=== PATIENT | male | born 1995 | race Caucasian/White ===

== ENCOUNTER 2016-08-02 14:53 | Emergency (ER) | payer MEDICAID, OTHER ==
[~2016-08-02] VITALS: Ht 180.3 cm; Wt 87.0 kg
[2016-08-02 15:02] VITALS: BP 128/76; PULSE 91; RESP 16; TEMP 97.9; O2SAT 97
[2016-08-02] MEDS ORDERED: LIDOCAINE HCL 1% 50 ML VIAL XX ONE (15:15)
[2016-08-02] MEDS ORDERED: ONDANSETRON ODT 4 MG TAB PO/SL ONE (15:15)
[2016-08-02] MEDS ORDERED: AZITHROMYCIN 250 MG TAB PO ONE (15:15)
[2016-08-02] MEDS ORDERED: metroNIDAZOLE 500 MG TAB PO ONE (15:15)
[2016-08-02] MEDS ORDERED: cefTRIAXone 250 MG VIAL IM ONE (15:15)
[2016-08-02 15:29] LABS: BLOOD, URINE NEG (NEG); GLUCOSE,URINE NEG (NEG); KETONE, URINE NEG (NEG); NITRITE,URINE NEG (NEG)
[2016-08-02 15:39] LABS: METHOD OF COLLECTION CLEAN CATCH; URINE COLOR YELLOW (YELLW/STRAW)
[2016-08-02 15:40] LABS: CULTURE IF INDICATED CULTURE INDICATED
[2016-08-02 15:41] LABS: COMMENT (UR) CULTURE INDICATED; COMMENT2 (UR) MUCOUS PRESENT; SQUAMOUS EPITHELIAL CELL URINE 0-5 /hpf (0-5)
--- NOTE | 2016-08-02 15:48 | PD ---
HPI Chief Complaint: Complaint Time Seen by Provider: 15:15 Travel History International Travel<30 days: No Contact w/Intl Traveler<30days: No Traveled to known affect area: No History of Present Illness HPI Patient's a 20-year-old male who comes into the emergency department for evaluation for exposure to chlamydia. Patient states his girlfriend was diagnosed with Chlamydia one week ago during a routine exam. Patient denies any discharge but reports occasional burning with urination. He further denies any fevers, chills, abdominal pain or nausea, vomiting, back pain. PFSH Past Medical History Medical History: Denies Significant Hx Tetanus Vaccination: > 5 Years Influenza Vaccination: No Social History Alcohol Use: No Tobacco Use: Yes (1 PPD) Substance Use: No Allergies-Medications (Allergen,Severity, Reaction): Coded Allergies: No Known Allergies (Unverified , 08/02/16) Reported Meds & Prescriptions Reported Meds & Active Scripts Active No Active Prescriptions or Reported Medications Review of Systems Except as stated in HPI: all other systems reviewed are Neg Genitourinary: Positive: Dysuria Physical Exam Narrative GENERAL: Well-nourished, well-developed patient. SKIN: Warm and dry. HEAD: Normocephalic. EYES: No scleral icterus. No injection or drainage. NECK: Supple, trachea midline. No JVD or lymphadenopathy. CARDIOVASCULAR: Regular rate and rhythm without murmurs, gallops, or rubs. RESPIRATORY: Breath sounds equal bilaterally. No accessory muscle use. GASTROINTESTINAL: Abdomen soft, non-tender, nondistended. MUSCULOSKELETAL: No cyanosis, or edema. BACK: Nontender without obvious deformity. No CVA tenderness. Data Data Last Documented VS Vital Signs Date Time Temp Pulse Resp B/P Pulse Ox O2 Delivery O2 Flow Rate FiO2 08/02/16 15:02 97.9 91 16 128/76 97 Orders Urinalysis - C+S If Indicated (08/02/16 15:13) Gc And Chlamydia Pcr (08/02/16 15:13) Azithromycin (Zithromax) (08/02/16 15:15) Ceftriaxone Inj (Rocephin Inj) (08/02/16 15:15) Metronidazole (Flagyl) (08/02/16 15:15) Ondansetron Odt (Zofran Odt) (1/20/17 15:15) Lidocaine 1% Inj (50 Ml) (Xylocaine 1% I (08/02/16 15:15) Urine Culture (08/02/16 15:15) Labs Laboratory Tests Test 08/02/16 15:15 Urine Collection Type CLEAN CATCH Urine Color YELLOW Urine Turbidity CLEAR Urine pH 6.0 Urine Specific [place] 1.021 Urine Protein NEG mg/dL Urine Glucose (UA) NEG mg/dL Urine Ketones NEG mg/dL Urine Occult Blood NEG Urine Nitrite NEG Urine Bilirubin NEG Urine Leukocyte Esterase TRACE Urine WBC 9-14 /hpf Urine Squamous Epithelial 0-5 /hpf Cells Urine Amorphous Sediment FEW Microscopic Urinalysis Comment CULTURE INDICATED Urine Collection Time 1515 MDM Medical Decision Making Medical Screen Exam Complete: Yes Emergency Medical Condition: Yes Interpretation(s) Vital Signs Date Time Temp Pulse Resp B/P Pulse Ox O2 Delivery O2 Flow Rate FiO2 08/02/16 15:02 97.9 91 16 128/76 97 Differential Diagnosis Urinary tract infection versus dissection transmitted infection versus dysuria versus other Narrative Course Patient is a 20-year-old male who presented to emergency for evaluation after he was notified that his girlfriend has chlamydia. Patient is in a monogamous relationship, she received this diagnosis during routine screening. Urinalysis revealed elevated white blood cells, culture is pending. Patient was treated empirically for trichomoniasis, chlamydia, gonorrhea. Patient was advised that he will be notified if his test results are positive. Patient was advised to avoid sexual relations with his girlfriend until she completes the full course of treatment. Patient verbalized understanding of these instructions. He was further advised to avoid alcohol intake for at least 72 hours. Patient is stable for discharge. Diagnosis Primary Impression: Exposure to sexually transmitted disease (STD) Referrals: Primary Care Physician [facility] Dept. Patient Instructions: General Instructions, Sexually Transmitted Diseases (ED) Additional Instructions: Follow-up with your primary doctor or at the [facility] Department for further screening for sexual transmitted diseases. Do not take alcohol for at least 72 hours Return to emergency department for any new or worsening symptoms Med/Other Pt SpecificInfo: No Change to Meds Scripts No Active Prescriptions or Reported Meds Disposition: 01 DISCHARGE HOME Condition: Stable Desiree Mendiola Aug 02, 2016 15:48
[2016-08-02 19:13] LABS: CHLAMYDIA PCR DETECTED (NOT DETECT); NEISSERIA PCR NOT DETECTED (NOT DETECT)
== END 2016-08-02 16:15 | disposition home or self-care (01) ==
LOC: PHEFT 14:53
DX: R30.0 Dysuria (principal); Z20.2 Contact with and (suspected) exposure to infections with a predominantly sexual mode of transmission; F17.210 Nicotine dependence, cigarettes, uncomplicated
CPT/HCPCS: 81001; 87086; 87491; 87591; 96372; 99283; J0696

== ENCOUNTER 2016-12-31 11:21 | Emergency (ER) | payer MEDICAID ==
[~2016-12-31] VITALS: Ht 180.3 cm; Wt 94.5 kg
[2016-12-31 11:24] VITALS: BP 126/81; PULSE 78; RESP 16; TEMP 98.2; O2SAT 98
[2016-12-31] MEDS ORDERED: ZOFR4TAB PO (11:41)
--- NOTE | 2016-12-31 11:44 | PD ---
HPI Chief Complaint: Dizziness Time Seen by Provider: 11:31 Travel History International Travel<30 days: No Contact w/Intl Traveler<30days: No Traveled to known affect area: No History of Present Illness HPI This patient complains of having nausea vomiting diarrhea. He also complains of some room spinning dizziness. Symptoms severity is mild. No alleviating factors. No head injury or fever or headache. PFSH Past Medical History Hx Anticoagulant Therapy: No Diabetes: No Respiratory: Yes (ASTHMA) Social History Alcohol Use: No Tobacco Use: Yes (1 PPD) Substance Use: No Allergies-Medications (Allergen,Severity, Reaction): Coded Allergies: No Known Allergies (Unverified , 12/31/16) Reported Meds & Prescriptions Reported Meds & Active Scripts Active No Active Prescriptions or Reported Medications Review of Systems General / Constitutional: No: Fever HENT: Positive: Vertigo, No: Headaches Gastrointestinal: Positive: Nausea, Vomiting, Diarrhea Physical Exam Narrative GENERAL: Well-nourished, well-developed patient in no apparent distress. SKIN: Focused skin assessment reveals no rash and nodules. Skin is Warm and dry. HEAD: Atraumatic. Normocephalic. EYES: Pupils equal and round. No scleral icterus. No injection or drainage. ENT: No nasal bleeding or discharge. Mucous membranes pink and moist. NECK: Trachea midline. No JVD. CARDIOVASCULAR: Regular rate and rhythm. No murmur appreciated. RESPIRATORY: No accessory muscle use. Clear to auscultation. Breath sounds equal bilaterally. GASTROINTESTINAL: Abdomen soft, non-tender, nondistended. Hepatic and splenic margins not palpable. MUSCULOSKELETAL: No obvious deformities. No clubbing. No cyanosis. No edema. NEUROLOGICAL: Awake and alert. No obvious cranial nerve deficits. Motor grossly within normal limits. Normal speech. PSYCHIATRIC: Appropriate mood and affect; insight and judgment normal. Data Data Last Documented VS Vital Signs Date Time Temp Pulse Resp B/P Pulse Ox O2 Delivery O2 Flow Rate FiO2 12/31/16 11:24 98.2 78 16 126/81 98 MDM Medical Decision Making Medical Screen Exam Complete: Yes Emergency Medical Condition: Yes Medical Record Reviewed: Yes Differential Diagnosis Gastritis, colitis, positional vertigo Narrative Course I have reviewed the patient's electronic medical record. Patient has normal vital signs and normal exam. Presentation seems mild and benign No objective findings. I wrote some Zofran on prescription and discussed meclizine use which is [id number] The patient was advised to follow up with their physician and return if they worsen. Diagnosis Primary Impression: Nausea vomiting and diarrhea Additional Impression: Positional vertigo Qualified Code: H81.10 - Positional vertigo, unspecified laterality Additional Instructions: The patient was advised to follow up with their physician and return if they worsen. Med/Other Pt SpecificInfo: Prescription(s) given Scripts Ondansetron (Zofran)4 Mg Tab4 Mg PO Q6HR PRN (NAUSEA OR VOMITING) #10 TAB Ref 0 Prov:Marcello Bravo MD 12/31/16 Disposition: 01 DISCHARGE HOME Condition: Stable Marcello Bravo MD Dec 31, 2016 11:43
== END 2016-12-31 12:00 | disposition home or self-care (01) ==
LOC: PHED 11:21
DX: R11.2 Nausea with vomiting, unspecified (principal); R19.7 Diarrhea, unspecified; H81.10 Benign paroxysmal vertigo, unspecified ear; J45.909 Unspecified asthma, uncomplicated; F17.210 Nicotine dependence, cigarettes, uncomplicated
CPT/HCPCS: 99283

== ENCOUNTER 2017-07-20 12:35 | Emergency (ER) | payer MEDICAID ==
[~2017-07-20 12:35] MED LIST: ZOFR4TAB PO
[2017-07-20 12:37] VITALS: BP 130/70; PULSE 90; RESP 16; TEMP 97.7; O2SAT 99
--- NOTE | 2017-07-20 13:07 | PD ---
HPI Chief Complaint: Medical Clearance Time Seen by Provider: 12:58 Travel History International Travel<30 days: No Contact w/Intl Traveler<30days: No Traveled to known affect area: No History of Present Illness HPI 21-year-old male presents emergency department requesting a work release to return back to work today after having the flu last week. He is complaining of sore throat that started yesterday. He has history of strep throat. Since symptoms feel like the start of strep throat. Denies lump in throat, difficulty swallowing, unusual drooling. Reports painful swallowing. Denies fever, headache, vomiting, abdominal pain. He is not taking any medications or tried any treatments to alleviate his symptoms. Rates her throat 5/10. Describes as a burning sensation. No known relieving factors. Aggravating with swallowing. No known allergies. No primary care provider. Has no other medical complaints. No other modifying factors or associated signs and symptoms. PFSH Past Medical History Hx Anticoagulant Therapy: No Asthma: Yes Diabetes: No Respiratory: Yes (ASTHMA) Social History Alcohol Use: No Tobacco Use: Yes (1 PPD) Substance Use: No Allergies-Medications (Allergen,Severity, Reaction): Coded Allergies: No Known Allergies (Unverified , 12/31/16) Reported Meds & Prescriptions Reported Meds & Active Scripts Active Zofran (Ondansetron HCl) 4 Mg Tab 4 Mg PO Q6HR PRN Review of Systems Except as stated in HPI: all other systems reviewed are Neg Physical Exam Narrative GENERAL: Well-nourished, well-developed male patient, in no acute distress; afebrile SKIN: Warm and dry. No rash. HEAD: Atraumatic. Normocephalic. EYES: Pupils equal and round at 3 mm with brisk reaction. No scleral icterus. No injection or drainage. PERRLA. ENT: Mucosa pink and dry. Pharynx with 2+ tonsils; with erythema and edema; without exudate. No Uvular edema. No uvular, palatal, or tonsillar deviation. Airway patent. Voice is hoarse. EARS: Bilateral pinnae and external canals appear within normal limits. Bilateral tympanic membranes without erythema, dullness or perforation.. NECK: Trachea midline. Anterior cervical lymphadenopathy and tenderness. CARDIOVASCULAR: Regular rate. RESPIRATORY: No accessory muscle use GASTROINTESTINAL: Flat. MUSCULOSKELETAL: No obvious deformities. No clubbing. No cyanosis. No edema. NEUROLOGICAL: Awake and alert. Oriented 3. No obvious cranial nerve deficits. Motor grossly within normal limits. Normal speech. Moves all extremities. PSYCHIATRIC: Appropriate mood and affect; insight and judgment normal. Data Data Last Documented VS Vital Signs Date Time Temp Pulse Resp B/P (MAP) Pulse Ox O2 Delivery O2 Flow Rate FiO2 07/20/17 12:37 97.7 90 16 130/70 (90) 99 Orders Orders Group A Rapid Strep Screen (07/20/17 13:02) Strep Culture (Group A) (07/20/17 13:09) MDM Medical Decision Making Medical Screen Exam Complete: Yes Emergency Medical Condition: Yes Medical Record Reviewed: Yes Differential Diagnosis Viral pharyngitis, strep pharyngitis, sore throat, medical clearance Narrative Course 21-year-old male with sore throat since yesterday. The patient pain medication and declined. Rapid strep ordered. 1337: Rapid strep negative. Work release provided. Instructed patient to follow up with primary care provider. Patient verbalizes understanding and agreement with treatment plan. Patient is medically cleared and stable for discharge. Discussed reasons to return to the emergency department. Patient agrees with treatment plan. The patients vital signs are stable and the patient is stable for outpatient follow-up and treatment. Patient discharged home, stable and in no acute distress. Diagnosis Primary Impression: Sore throat (viral) Referrals: [facility] Primary Care Physician Patient Instructions: General Instructions, Pharyngitis (ED) Departure Forms: Tests/Procedures, Work Release Enter return to work date: Jul 20, 2017 Additional Instructions: Throw away and change your toothbrush 24 hours Get plenty of sleep/rest Rest your voice Drink plenty of fluids to prevent dehydration Use warm saltwater gargles to soothe throat pain Use an air humidifier/turn off ceiling fans Use throat lozenges as needed for sore throat Use ibuprofen or acetaminophen as needed to relieve pain and fever Follow-up with your primary care provider within 2-4 days Return immediately to the emergency department with worsening of symptoms Med/Other Pt SpecificInfo: No Change to Meds, No Meds Exist/No RX given Disposition: 01 DISCHARGE HOME Condition: Stable Esperanza Rodriguez Jul 20, 2017 13:07
== END 2017-07-20 14:09 | disposition home or self-care (01) ==
LOC: NEPD 12:35
DX: J02.9 Acute pharyngitis, unspecified (principal); J45.909 Unspecified asthma, uncomplicated; F17.200 Nicotine dependence, unspecified, uncomplicated
CPT/HCPCS: 87081; 87880; 99283

== ENCOUNTER 2017-08-02 17:51 | Emergency (ER) | payer MEDICAID ==
[2017-08-02 17:52] VITALS: BP 166/93; PULSE 98; RESP 14; TEMP 98.8; O2SAT 96
[2017-08-02] MEDS ORDERED: AZIT250T3 PO (18:57)
--- NOTE | 2017-08-02 18:58 | PD ---
HPI Chief Complaint: ENT Complaint Time Seen by Provider: 18:40 Travel History International Travel<30 days: No Contact w/Intl Traveler<30days: No Traveled to known affect area: No History of Present Illness HPI Patient 21-year-old male presents to the emergency department with sore throat 2 weeks, no cough, states it has become painful to swallow, no fevers, no chest pain or shortness of breath no abdominal pain no nausea or vomiting. States it feels like his throat starting to swell a little bit too. Here 2 weeks ago negative rapid strep test at that time, states symptoms are moderate, gradually worsening duration the past 2 weeks, associated sinus symptoms as above. PFSH Past Medical History Hx Anticoagulant Therapy: No Asthma: Yes Diabetes: No Diminished Hearing: No Respiratory: Yes (ASTHMA) Immunizations Current: Yes Tetanus Vaccination: Unknown Influenza Vaccination: No Social History Alcohol Use: No Tobacco Use: Yes (1 PPD) Substance Use: No Allergies-Medications (Allergen,Severity, Reaction): Coded Allergies: No Known Allergies (Unverified Adverse Reaction, Unknown, 08/02/17) Reported Meds & Prescriptions Reported Meds & Active Scripts Active Azithromycin 250 Mg Tab 250 Mg PO DIRECTED Take 2 tabs (500 mg) on day 1 then 1 tab daily x 4 days. Review of Systems Except as stated in HPI: all other systems reviewed are Neg Physical Exam Narrative GENERAL: Well-nourished, well-developed patient. SKIN: Focused skin assessment warm/dry. No rash no wound HEAD: Normocephalic. Atraumatic EYES: No scleral icterus. No injection or drainage. ENT: Oropharynx erythematous, tonsils are 3+ but no purulent drainage, swallows easily protecting his airway well, airways patent. No uvular nor soft palate swelling. TMs clear bilaterally. NECK: Supple, trachea midline. No JVD or lymphadenopathy. CARDIOVASCULAR: Regular rate and rhythm without murmurs, gallops, or rubs. RESPIRATORY: Breath sounds equal bilaterally. No accessory muscle use. GASTROINTESTINAL: Abdomen soft, non-tender, nondistended. MUSCULOSKELETAL: No cyanosis, or edema. BACK: Nontender without obvious deformity. No CVA tenderness. Data Data Last Documented VS Vital Signs Date Time Temp Pulse Resp B/P (MAP) Pulse Ox O2 Delivery O2 Flow Rate FiO2 08/02/17 19:15 08/02/17 17:52 98.8 98 14 96 Orders Orders Azithromycin (Zithromax) (08/02/17 19:00) Ed Discharge Order (08/02/17 18:58) MDM Medical Decision Making Medical Screen Exam Complete: Yes Emergency Medical Condition: Yes Differential Diagnosis Streptococcal pharyngitis, URI, virally pharyngitis. Narrative Course Patient room to the emergency department, he appears well in no obvious distress , protecting his airway, given the duration of symptoms will cover for atypical causes with azithromycin. Stable for discharge, follow-up with primary care physician. Discussed smoking cessation in smoking's many adverse health effects. Diagnosis Primary Impression: Pharyngitis Qualified Codes: J02.9 - Acute pharyngitis, unspecified Departure Forms: Tests/Procedures, Work Release Enter return to work date: Aug 03, 2017 Med/Other Pt SpecificInfo: Prescription(s) given Scripts Azithromycin (Azithromycin) 250 Mg Tab 250 MG PO DIRECTED for Infection, #6 TAB 0 Refills Take 2 tabs (500 mg) on day 1 then 1 tab daily x 4 days. Prov: Perfecto Al MD 08/02/17 Disposition: 01 DISCHARGE HOME Condition: Stable Perfecto Al MD Aug 02, 2017 18:58
[2017-08-02] MEDS ORDERED: AZITHROMYCIN 250 MG TAB PO ONE (19:00)
== END 2017-08-02 19:29 | disposition home or self-care (01) ==
LOC: NEPD 17:51
DX: J02.9 Acute pharyngitis, unspecified (principal); J45.909 Unspecified asthma, uncomplicated; F17.200 Nicotine dependence, unspecified, uncomplicated
CPT/HCPCS: 99283